=== PATIENT | male | born 1975 | race Caucasian/White ===

== ENCOUNTER → 2019-08-02 11:39 | Outpatient (CLI) | payer OTHER, SELFPAY ==
--- NOTE | ~2019-08-02 | XR_ITS ---
EXAMINATION: XR_[id number]_CR DATE: 08/02/2019 12:27 INDICATION: Neck pain. TECHNIQUE: 5 views of cervical spine on 6 radiographs were obtained. COMPARISON: None. FINDINGS: There is 11 degrees dextroscoliosis of cervical spine. Vertebral body heights and intervert ebral disc heights are normal. There are endplate osteophytes at most levels. The facet joints are un remarkable. No central canal stenosis or prevertebral soft tissue swelling. IMPRESSION: 1. Mild cervical spondylosis. 2. Cervical dextroscoliosis. Reviewed, dictated and finalized at location A. [employer] FINISHER OPERATOR
== END ==
PROVIDERS: PCP Family Medicine; Visit Provider Physician Assistant Medical
DX: M47.892 Other spondylosis, cervical region (principal)
CPT/HCPCS: 72040

== ENCOUNTER 2020-05-07 06:41 | Outpatient (NON) | payer OTHER, SELFPAY ==
[2020-05-08 01:03] LABS: SARS-CoV-2 RNA PCR Positive
== END 2020-05-07 06:42 ==
LOC: ANHCOVIDDT 06:41
PROVIDERS: PCP Family Medicine; Visit Provider Family Medicine
DX: U07.1 COVID-19 (principal)
CPT/HCPCS: 87635; C9803; U0003

== ENCOUNTER → 2022-01-04 09:21 | Outpatient (CLI) | payer OTHER, SELFPAY ==
--- NOTE | ~2022-01-04 | XR_ITS ---
XR chest 2V DATE: 01/04/2022 09:42 INDICATION: Chest pain TECHNIQUE: 2 views COMPARISON: None FINDINGS: Normal heart size. No hilar or mediastinal enlargement. No pulmonary infiltrate or consolid ation, pleural effusion or pulmonary vascular congestion or pneumothorax. Degenerative spurring of th e thoracic spine. IMPRESSION: No active cardiopulmonary disease Reviewed, dictated and finalized at location A.
== END ==
PROVIDERS: PCP Family Medicine; Visit Provider Family Medicine
DX: R07.89 Other chest pain (principal); M47.814 Spondylosis without myelopathy or radiculopathy, thoracic region
CPT/HCPCS: 71046

== ENCOUNTER 2022-05-17 00:54 | Day surgery (SDC) | payer OTHER, SELFPAY ==
[2022-05-16 14:44] VITALS: BMI 43.4
[2022-05-17] VITALS (10 sets, daily range): BP systolic 131–145; BP diastolic 81–97; PULSE 61–72; RESP 12–19; TEMP 36.6; O2SAT 95–98; BMI 42.7
[2022-05-17 07:53] LABS: Basophils Percent Auto 0.4 % (0.2-1.2); Eosinophils Absolute Auto 0.1 K/mm3 (0-0.3); Eosinophils Percent Auto 1.3 % (0-4.4); Hemoglobin 14.3 g/dL (14.0-18.0); Immature Granulocyte Absolute 0.01 K/mm3 (0.00-0.031); Immature Granulocyte Percent A 0.2 % (0-0.5); Lymphocytes Absolute Auto 1.26 K/mm3 (0.9-3.2); Lymphocytes Percent Auto 22.7 % (18.3-44.2); Mean Corpuscular Hemoglobin 30.4 pg (26-34); Mean Corpuscular Volume 89.2 fl (80-100); Mean Platelet Volume 8.8 fl (7.4-10.4); Monocytes Absolute Auto 0.5 K/mm3 (0.1-0.6); Monocytes Percent Auto 8.5 % (2.6-8.5); Neutrophils Absolute Auto 3.7 K/mm3 (1.3-6.7); Neutrophils Percent Auto 66.9 % (45.5-73.1); Platelet Count Result 203 k/mm3 (150-375); Red Blood Count 4.71 M/mm3 (4.6-6.20); Red Cell Distribution Width 12.5 % (11.5-14.5); White Blood Count 5.6 K/mm3 (4.5-10.0)
[2022-05-17 08:03] LABS: Anion Gap 10 mmol/L (8-16); Blood Urea Nitrogen 16 mg/dL (9-20); Calcium 8.8 mg/dL (8.4-10.2); Carbon Dioxide 27 mmol/L (22-30); Chloride 104 mmol/L (98-107); Estimated CRCL calculation 144 ml/min; Estimated Glomerular Filt Rate > 60; Glucose 107 mg/dL (65-110); Potassium 3.7 mmol/L (3.4-5.0); Sodium 141 mmol/L (137-145)
--- NOTE | 2022-05-17 08:45 | WPDHPUPDATE1 ---
History and Physical Update Update Date/Time: 05/17/22 08:45 History and Physical has been reviewed, including an updated exam of the patient. There are NO changes in the patient's condition. Risks, benefits, and alternatives have been discussed and questions answered. Patient agrees to proceed with procedure.
--- NOTE | 2022-05-17 08:45 | WPDMODSED ---
Moderate Sedation Note-Pt Data Patient Data Diagnosis: Chest pain Present Complaint: Chest pain Procedure to be performed/Plan: Coronary angiography; left heart cath Allergies Allergy/AdvReac Type Severity Reaction Status Date / Time fexofenadine Allergy Unknown tachycardia Unverified 05/17/22 07:33 pseudoephedrine [Jadyn-D] Allergy Unknown tachycardia Verified 05/17/22 07:32 narcotic AdvReac Severe addiction Uncoded 02/08/22 10:40 Home Medications Medication Instructions Recorded Confirmed Type naratriptan 2.5 mg tablet (Amerge) 2.5 mg PO ONCE PRN Day long 01/27/21 05/16/22 Rx migraine #10 tabs nitroglycerin 0.4 mg sublingual 0.4 mg sublingual Q5M PRN chest 12/15/21 05/16/22 Rx tablet pain #25 tabs sumatriptan succinate 100 mg tablet 100 mg PO .prn PRN migraine 02/13/22 05/16/22 Rx headache #10 tabs atorvastatin 10 mg tablet 10 mg PO DAILY #90 tabs 03/27/22 05/16/22 Rx lisinopril 10 mg tablet 20 mg PO DAILY #90 tabs 05/05/22 05/16/22 Rx cyclobenzaprine 10 mg tablet 10 mg PO PRN muscle spasm 05/16/22 05/16/22 History metoprolol succinate 100 mg 100 mg PO DAILY 05/16/22 05/16/22 History tablet,extended release 24 hr Current Medications: Active Medications Sodium Chloride (Normal Saline Iv) 500 mls @ 100 mls/hr IV CONT .Q5H THALIA Sedation/Anesthesia: No previous sedation/anesthesia problems (including family history). [facility] Past Medical History Medical History Alcoholic Alcoholism COVID-19 Surgical History Surgical History History of appendectomy Family History Family History Father Depression Hypertension Family history of elevated blood lipids Social History Social History Smoking status: Never smoker Alcohol intake: former Alcohol use details: quit drinking 22 years ago Substance use: former Living arrangements: with family Spiritual care concerns: No Mod Sed Physical Exam Physical Exam Pre Procedural Exam: Normal: Appearance, Lungs, Heart Rate, Heart Rhythm, Neuro Exam, Abdomen, Extremities and Skin Hours since solid foods: 15 Hours since liquid intake: 10 Mallampati Classification: class III Internal Medicine - PN: Obj Da Vital Signs Vital Signs: Vital Signs - 24 hr 05/17/22 07:34 Temperature 36.6 C Pulse Rate 72 Respiratory Rate 12 Blood Pressure 145/81 H Pulse Oximetry 97 Oxygen Delivery Room Air Meds/Results Medications: Active Medications Generic Name Dose Route Start Last Admin Trade Name Freq PRN Reason Stop Dose Admin Sodium Chloride 500 mls @ 100 mls/hr 05/17/22 07:00 Normal Saline Iv IV CONT .Q5H THALIA Labs CBC & Chem 7: 05/17/22 07:31 05/17/22 07:31 Labs: Laboratory Results - last 24 hr 05/17/22 05/17/22 07:31 07:31 WBC 5.6 RBC 4.71 Hgb 14.3 Hct 42.0 MCV 89.2 MCH 30.4 MCHC 34.0 RDW 12.5 Plt Count 203 MPV 8.8 Immature Gran % (Auto) 0.2 Neut % (Auto) 66.9 Lymph % (Auto) 22.7 [place] % (Auto) 8.5 Eos % (Auto) 1.3 Baso % (Auto) 0.4 Lymph # (Auto) 1.26 [place] # (Auto) 0.5 Eos # (Auto) 0.1 Baso # (Auto) 0.0 Abs Immat Gran (auto) 0.01 Absolute Neuts (auto) 3.7 Absolute Nucleated RBC 0.0 Nucleated RBC % 0.0 Sodium 141 Potassium 3.7 Chloride 104 Carbon Dioxide 27 Anion Gap 10 BUN 16 Creatinine 1.00 Estim Creat Clear Calc 144 Estimated GFR > 60 Glucose 107 Calcium 8.8 ASA Classification/Sedation ASA Classification/Sedation ASA Class: II Emergent: No Risks: Risks, benefits and alternatives explained and patient/family accepted plan for sedation. Patient re-evaluated immediately prior to sedation.
--- NOTE | 2022-05-17 08:47 | WPDCARDPROC ---
Cardiac Cath Procedure Note Date of procedure:: 05/17/22 Performing physician:: CATHETERIZATION LABORATORY REPORT Procedure Date: 05/17/2022 Manager Monitoring: Dalila Tariq M.D., [facility]? Referring Physician: Wei Solorzano M.D. ? Anesthesia: Versed and Fentanyl were ordered and given in my presence at 08:49, procedure ended at 09:21. Supervision of nurse monitored moderate sedation with Versed and Fentanyl was provided for 32 minutes. Total of Versed 2mg and Fentanyl 50mcg were administered by City Constable RN Penelope Muñoz. Pre-op Diagnosis: Chest pain Post-op Diagnosis: Nonobstructive coronary arteries Left ventricular end-diastolic pressure of 13mmHg Procedure(s): Left heart catheterization with coronary angiography Access Site: Right radial artery Brief History and Clinical Indications: Patient is a 46-year-old male who is referred for [facility] for chest pain in the setting of abnormal regional wall motion on TTE. All risks, benefits and alternatives to left heart catheterization with or without percutaneous coronary intervention was discussed at length with the patient. Risk of complications including but not limited to bleeding, infection, arrhythmia, stroke, worsening kidney function, blood loss, groin hematoma, limb loss, emergency coronary artery bypass grafting, and even were discussed with the patient and all questions were answered. The patient understood and wished to proceed. Time out called, patient name, date of , medical record number, allergies, procedure performed, identify Manager Monitoring, patient and staff member concurred with accurate data, procedure carried on. Findings: LEFT HEART CATHETERIZATION FINDINGS: 1. Left main: The left main coronary artery is widely patent without any significant obstructive disease. 2. Left anterior descending: The LAD and the diagonal branches have mild luminal irregularities without any significant obstructive angiographic disease. 3. Ramus: The Ramus has mild luminal irregularities without any significant obstructive angiographic disease. 4. Left circumflex: The left circumflex artery and the main marginal branches have mild luminal irregularities without any significant obstructive angiographic disease. 5. Right coronary artery: The RCA has mild luminal irregularities without any significant obstructive angiographic disease. The RCA is the dominant vessel. 6. Left ventricle: A. End-diastolic pressure 13mmHg. B. LV gram deferred. C. No significant gradient across aortic valve on catheter pullback. Description of Procedure: Informed consent signed and placed in the chart. Patient transferred to lab animal technologist room. Prepped and draped in usual sterile fashion. 2% lidocaine injected subcutaneously in right wrist area. 22-gauge venipuncture catheter used to access the right radial artery with the Seldinger technique. 6-FR slender sheath placed in right radial artery. Nitroglycerine and Verapamil was given intraarterial through the sheath. Versacore wire advanced under fluoroscopy 5F Tig 4 diagnostic catheter engaged Left Main Coronary Artery. 5F Tig 4 diagnostic catheter engaged Right Coronary Artery Multiple orthogonal angiogram obtained and reviewed 5F Tig 4 diagnostic catheter crossed aortic valve to obtain LVEDP, LV angiogram deferred. Hemostasis was achieved by application of TR band. ? Assessment: Nonobstructive coronary arteries Left ventricular end-diastolic pressure of 13mmHg Post Operative Condition: Stable No significant blood loss Disposition: Home Plan: The patient will be monitored in the recovery area. Discharge home after post-cath bed rest is completed. The above findings were discussed with the referring physician. Continue aggressive medical therapy and risk factor modification. ? Dalila Tariq M.D. Interventional Cardiology
== END 2022-05-17 12:23 | disposition home or self-care (01) ==
PROVIDERS: PCP Family Medicine; Visit Provider Internal Medicine
PROC: 4A023N7 Measurement of Cardiac Sampling and Pressure, Left Heart, Percutaneous Approach (ICD-10-PCS; CPT 93452; principal; 2022-05-17 08:30)
DX: R93.1 Abnormal findings on diagnostic imaging of heart and coronary circulation (principal); R07.9 Chest pain, unspecified; I10 Essential (primary) hypertension; E78.5 Hyperlipidemia, unspecified; G47.33 Obstructive sleep apnea (adult) (pediatric); Z82.49 Family history of ischemic heart disease and other diseases of the circulatory system; E66.01 Morbid (severe) obesity due to excess calories; Z68.41 Body mass index [BMI] 40.0-44.9, adult; Z79.82 Long term (current) use of aspirin
CPT/HCPCS: 36415; 80048; 85025; 93458; A9270; C1769; C1887; C1894; J1644; J2250; J3010; J7040

== ENCOUNTER 2023-05-04 02:04 | Day surgery (SDC) | payer OTHER, SELFPAY ==
[2023-04-25 11:54] VITALS: BMI 41.6
--- NOTE | 2023-05-02 11:50 | SUR.PREOP ---
Patient called regarding upcoming procedure. Reviewed preop instructions, appointment times, and procedure prep.
[2023-05-04 09:29] VITALS: BMI 42.0
[2023-05-04 09:42] VITALS: BP 135/102; PULSE 104; RESP 18; TEMP 36.6; O2SAT 100
[2023-05-04] MEDS: LACTATED RINGERS 1,000 ML 150 ML IV CONT (10:05)
--- NOTE | 2023-05-04 10:20 | WPDANESEPPF ---
Anes - Initial Pre Proc Eval Procedure: Operation Date: 05/04/23 10:30 Proposed Procedures p Screening Colonoscopy - Moses Good MD Date/Time: 05/04/23 10:20 Surgeon: Moses Good MD Pre Op Diagnosis: neoplasm screening Patient Data Age: 47 Gender: M Height: 1.98 m Weight: 164.8 kg Last Vital Signs Temp 97.9 F 05/04/23 09:42 Pulse 104 H 05/04/23 09:42 Resp 18 05/04/23 09:42 BP 135/102 H 05/04/23 09:42 Pulse Ox 100 05/04/23 09:42 O2 Del Method Room Air 05/04/23 09:42 Allergies Allergy/AdvReac Type Severity Reaction Status Date / Time fexofenadine Allergy Unknown tachycardia Verified 04/25/23 11:55 pseudoephedrine [Jadyn-D] Allergy Unknown tachycardia Verified 04/25/23 11:55 Home Medications Medication Instructions Recorded Confirmed Type lisinopril 10 mg tablet 20 mg PO DAILY #90 tabs 05/05/22 04/25/23 Rx cyclobenzaprine 10 mg tablet 10 mg PO PRN muscle spasm 05/16/22 04/25/23 History hydrochlorothiazide 12.5 mg tablet 12.5 mg PO DAILY 05/22/22 04/25/23 History naratriptan 2.5 mg tablet 2.5 mg PO ONCE PRN Day long 08/02/22 04/25/23 Rx migraine #10 tabs sumatriptan succinate 100 mg tablet 100 mg PO .prn PRN migraine 12/18/22 04/25/23 Rx headache #10 tabs sertraline 50 mg tablet 50 mg PO DAILY #90 tabs 02/12/23 04/25/23 Rx buspirone 15 mg tablet 15 mg PO BID #60 tabs 03/28/23 04/25/23 Rx metoprolol succinate 100 mg 100 mg PO DAILY #90 tabs 04/02/23 04/25/23 Rx tablet,extended release 24 hr atorvastatin 10 mg tablet 10 mg PO DAILY #90 tabs 04/25/23 04/25/23 Rx Patient hx anesthesia problems: none Family hx anesthesia problems: none Results Review: All pre-operative results and documents have been reviewed as part of the pre-operative evaluation. PMFSH Past Medical History Medical History Alcoholic Alcoholism COVID-19 Surgical History Surgical History History of appendectomy Family History Family History Father Depression Hypertension Family history of elevated blood lipids Social History Social History Smoking status: Never smoker Alcohol intake: former Alcohol use details: quit drinking 22 years ago Substance use: former Lack of Transportation: No Lack of Food: Never True Current Housing: I Have Housing Concerned About Future Housing: No Difficulty Paying Gas/Electric Bills: No Difficulty Paying for Meds: No Currently Unemployed: No Education: Bachelor's Degree Living arrangements: with family Spiritual care concerns: No Anes - Eval Final PreProcedure Day of Procedure 05/04/23 10:20 Patient weight: morbidly obese Heart: regular rate and rhythm Lungs: clear to auscultation Airway: Mallampati scale class II Neurological: alert and oriented Last oral intake: >/= 8 hours ASA classification: III Emergent: no Anesthetic plan: proceed Anesthesia type and monitoring: general GIVS and standard monitoring Results Review: All pre-operative results and documents have been reviewed as part of the pre-operative evaluation. Informed Consent: The patient's anesthetic plan and its attendant risks and benefits were discussed with the patient/family/POA. Questions were solicited and answers provided to the satisfaction of the patient/family/POA.
--- NOTE | 2023-05-04 10:26 | PM.HPGS ---
History of Present Illness History of Present Illness Consent: Risks, benefits, and alternatives have been discussed and questions answered. Patient agrees to proceed with procedure. Chief complaint: neoplasm screening Narrative: Jorge Melendez is a 47 year old male here for first screening colonoscopy Review of Systems Constitutional: Constitutional: Denies headache(s) and Denies weakness Eyes: Eyes: Denies blurry vision ENT: Reports Normal hearing present, Denies headache(s) and Denies neck pain Cardiovascular: Cardiovascular: Denies chest pain and Denies dyspnea Respiratory: Respiratory: Denies dyspnea Gastrointestinal: Gastrointestinal: Reports no additional gastrointestinal complaints Genitourinary: Genitourinary: Denies dysuria Musculoskeletal: Musculoskeletal: Denies neck pain Integumentary/Breasts: Skin/Breast: Denies dry skin Neurologic: Reports Normal hearing present, Denies headache(s) and Denies weakness Psychiatric: Psychiatric: Denies anxiety Endocrine: Endocrine: Denies change in body appearance Hematologic/Lymphatic: Hematologic/Lymphatic: Denies easy bleeding Allergic/Immunologic: Allergic/Immunologic: Denies urticaria PMFSH Past Medical History Medical History (Updated 05/04/23 @ 10:27 by Moses Good MD) Alcoholic Alcoholism Colon cancer screening COVID-19 Surgical History Surgical History History of appendectomy Family History Family History Father Depression Hypertension Family history of elevated blood lipids Social History Social History Smoking status: Never smoker Alcohol intake: former Alcohol use details: quit drinking 22 years ago Substance use: former Lack of Transportation: No Lack of Food: Never True Current Housing: I Have Housing Concerned About Future Housing: No Difficulty Paying Gas/Electric Bills: No Difficulty Paying for Meds: No Currently Unemployed: No Education: Bachelor's Degree Living arrangements: with family Spiritual care concerns: No Meds Home Medications and Allergies Home Medications Medication Instructions Recorded Confirmed Type lisinopril 10 mg tablet 20 mg PO DAILY #90 tabs 05/05/22 04/25/23 Rx cyclobenzaprine 10 mg tablet 10 mg PO PRN muscle spasm 05/16/22 04/25/23 History hydrochlorothiazide 12.5 mg tablet 12.5 mg PO DAILY 05/22/22 04/25/23 History naratriptan 2.5 mg tablet 2.5 mg PO ONCE PRN Day long 08/02/22 04/25/23 Rx migraine #10 tabs sumatriptan succinate 100 mg tablet 100 mg PO .prn PRN migraine 12/18/22 04/25/23 Rx headache #10 tabs sertraline 50 mg tablet 50 mg PO DAILY #90 tabs 02/12/23 04/25/23 Rx buspirone 15 mg tablet 15 mg PO BID #60 tabs 03/28/23 04/25/23 Rx metoprolol succinate 100 mg 100 mg PO DAILY #90 tabs 04/02/23 04/25/23 Rx tablet,extended release 24 hr atorvastatin 10 mg tablet 10 mg PO DAILY #90 tabs 04/25/23 04/25/23 Rx Allergies Allergy/AdvReac Type Severity Reaction Status Date / Time fexofenadine Allergy Unknown tachycardia Verified 04/25/23 11:55 pseudoephedrine [Jadyn-D] Allergy Unknown tachycardia Verified 04/25/23 11:55 Vital Signs Vital Signs - 24 hr 05/04/23 09:42 Temperature 97.9 F Pulse Rate 104 H Respiratory Rate 18 Blood Pressure 135/102 H Pulse Oximetry 100 Oxygen Delivery Room Air Exam Const: General: comfortable and no acute distress HENMT: Face/Nose/Sinus: Normal nares present Eyes: General: appearance normal, both eyes and all related structures Neck: Neck: no JVD Resp: Auscultation: clear to auscultation bilaterally Cardio: Rate: regular rate Rhythm: regular rhythm GI: Inspection: non-distended GI Palp: Yes Soft to palpation Skin: General skin exam: normal color Neuro: General: gait normal Speech: normal speech Extrem: Ge
[2023-05-04 10:50] VITALS: BP 114/78; PULSE 94; RESP 24; O2SAT 95
[2023-05-04 11:00] VITALS: BP 133/95; PULSE 97; RESP 24; O2SAT 95
[2023-05-04 11:10] VITALS: BP 128/83; PULSE 91; RESP 26; O2SAT 94
== END 2023-05-04 11:35 | disposition home or self-care (01) ==
PROVIDERS: PCP Family Medicine; Visit Provider Internal Medicine Gastroenterology
PROC: 0DJD8ZZ Inspection of Lower Intestinal Tract, Via Natural or Artificial Opening Endoscopic (ICD-10-PCS; CPT 45378; principal; 2023-05-04 10:30)
DX: Z12.11 Encounter for screening for malignant neoplasm of colon (principal); D12.2 Benign neoplasm of ascending colon; D12.0 Benign neoplasm of cecum; K62.1 Rectal polyp; K57.30 Diverticulosis of large intestine without perforation or abscess without bleeding; E66.01 Morbid (severe) obesity due to excess calories; Z68.41 Body mass index [BMI] 40.0-44.9, adult
CPT/HCPCS: 45385; 45380; 88305; J2001; J2704; J7120